=== PATIENT | female | born 1995 | race Caucasian/White ===

== ENCOUNTER 2017-03-20 17:35 | Emergency (ER) | payer BC ==
[~2017-03-20] VITALS: Ht 167.6 cm; Wt 60.0 kg
[2017-03-20 17:41] VITALS: BP 127/70
--- NOTE | 2017-03-20 17:53 | NUR ---
PATIENT PRESENTS TO ED WITH COUGH CONGESTION FATIGUE AND THROAT PAIN . PT STATES . DENIES N/V/D; SKIN IS PINK/WARM/DRY; AAOX4 WITH EVEN AND STEADY GAIT; LUNGS CLEAR BL; HR EVEN AND REGULAR; PT DENIES ANY FEVER, CP, PATIENT STATES PAIN OF 5/10 AT THIS TIME; VSS; PATIENT POSITIONED FOR COMFORT; HOB ELEVATED; BEDRAILS UP X2; BED DOWN. ER MD MADE AWARE OF PT STATUS.
--- NOTE | 2017-03-20 17:54 | NUR ---
PT TAKEN TO OVERFLOW CHAIR 1.
--- NOTE | 2017-03-20 18:58 | NUR ---
STREP A SWABS COLLECTED AND HANDED TO [employer] TRI[employer] CONSULTANT
[2017-03-20 19:32] VITALS: BP 132/70
--- NOTE | 2017-03-20 19:32 | NUR ---
Patient discharged with v/s stable. Written and verbal after care instructions given and explained. Patient alert, oriented and verbalized understanding of instructions. Ambulatory with steady gait. All questions addressed prior to discharge. ID band removed. Patient advised to follow up with PMD. Rx of AUGMENTIN 875MG given. Patient educated on indication of medication including possible reaction and side effects. Opportunity to ask questions provided and answered.
== END 2017-03-20 19:32 | disposition home or self-care (01) ==
LOC: MED 17:35
DX: J02.9 Acute pharyngitis, unspecified (principal)
CPT/HCPCS: 87081; 99284

== ENCOUNTER 2017-03-23 13:19 | Emergency (ER) | payer BC ==
[~2017-03-23] VITALS: Ht 167.6 cm; Wt 59.9 kg
[2017-03-23 15:06] VITALS: BP 107/62
[2017-03-23] MEDS ORDERED: ESCITALOPRAM 10 MG TABLET (15:11)
[2017-03-23] MEDS ORDERED: LORAZEPAM 1 MG TABLET (15:11)
[2017-03-23] MEDS ORDERED: LEVONOR ETH ESTRAD (15:11)
[2017-03-23] MEDS ORDERED: AMOX1TAB8 PO (15:11)
--- NOTE | 2017-03-23 16:58 | NUR ---
22/ C/O SORE THROAT X7DAYS. EAR PAIN SINCE YESTERDAY. SEEN HERE ON 03/20, DX SORE THROAT, RX AMOXICILLIN X3DAYS.
[2017-03-23 17:48] VITALS: BP 103/66
--- NOTE | 2017-03-23 17:48 | NUR ---
Patient discharged with v/s stable. Written and verbal after care instructions given and explained. Patient alert, oriented and verbalized understanding of instructions. Ambulatory with steady gait. All questions addressed prior to discharge. ID band removed. Patient advised to follow up with PMD. Rx of PROMETHAZINE given. Patient educated on indication of medication including possible reaction and side effects. Opportunity to ask questions provided and answered.
== END 2017-03-23 17:48 | disposition home or self-care (01) ==
LOC: MED 13:19
DX: J06.9 Acute upper respiratory infection, unspecified (principal); Z79.899 Other long term (current) drug therapy
CPT/HCPCS: 99283